=== PATIENT | female | born 1960 | race Caucasian/White ===

== ENCOUNTER 2016-04-20 19:32 | Emergency (ER) | payer OTHER ==
[~2016-04-20] VITALS: Ht 152.4 cm; Wt 63.6 kg
[~2016-04-20 19:32] MED LIST: ALBU17AE27 IH; BACL10TA PO; BECL8.7A5 IH; HYD50 PO; LEVO112T7 PO; METF500T4 PO; OMEP20CA10 PO; PRAZ2 PO; TRAM50TA4 PO
[2016-04-20] MEDS ORDERED: SERT100T12 PO (19:59)
[2016-04-20] MEDS ORDERED: MORP15TA9 PO (19:59)
[2016-04-20] MEDS ORDERED: HYDR-3965 PO (19:59)
[2016-04-20 20:01] LABS: GLUCOSE,POINT OF CARE 106 MG/DL (70-110)
[2016-04-20 20:08] LABS: BASOPHILS % (AUTO) 0.3 % (0.0-2.0); HEMATOCRIT 36.5 % (36-46); HEMOGLOBIN 12.3 g/dL (12.0-16.0); LYMPHOCYTES # (AUTO) 4.8 K/uL (1.0-4.8); LYMPHOCYTES % (AUTO) 41.7 % (22.0-44.0); MEAN CORPUSCULAR HEMOGLOBIN 30.4 pg (26.0-34.0); MEAN CORPUSCULAR HGB CONC 33.8 G/dL (31.0-37.0); MEAN CORPUSCULAR VOLUME 90 fL (80-100); MONOCYTES # (AUTO) 0.8 K/uL (0.1-1.0); MONOCYTES % (AUTO) 7.4 % (2.0-9.0); NEUTROPHILS # (AUTO) 5.5 K/uL (1.8-7.7); NEUTROPHILS % (AUTO) 47.6 % (40.0-70.0); PLATELET COUNT (AUTO) 246 K/uL (150-450); RED BLOOD CELL COUNT(AUTO) 4.06 MIL/uL (4.00-5.20); RED CELL DISTRIBUTION WIDTH 13.8 % (11.5-14.5); WHITE BLOOD COUNT (AUTO) 11.5 K/uL (4.5-11.0)
[2016-04-20 20:26] LABS: ANION GAP 11 mmol/L (8-16); CALCIUM, TOTAL 8.9 mg/dL (8.8-10.5); CARBON DIOXIDE 25 mmol/L (22-29); CHLORIDE 103 mmol/L (98-107); CREATININE 0.82 mg/dL (0.60-1.30); GLOMERULAR FILTR. RATE CALC > 60 mL/min (>60); POTASSIUM 3.1 mmol/L (3.5-5.1); SODIUM SERUM 139 mmol/L (136-145); UREA NITROGEN, BLOOD 16 mg/dL (7-18)
[2016-04-20 20:31] LABS: ALANINE AMINOTRANSFERASE 29 U/L (12-78); ALBUMIN 3.7 g/dL (3.4-5.0); ASPARTATE AMINOTRANSFERASE 31 U/L (15-37); BILIRUBIN,TOTAL 0.2 mg/dL (0.1-1.0); TOTAL PROTEIN, SERUM 6.9 g/dL (6.4-8.2)
[2016-04-20] MEDS ORDERED: SODIUM CHLORIDE 0.9% 1,000 ML IV ONE (22:45)
[2016-04-20] MEDS ORDERED: ONDANSETRON HCL 4 MG/2 ML VIAL IVP ONE (22:45)
[2016-04-20] MEDS ORDERED: DIPHENOXYLATE/ATROP 2.5-0.025 MG TABLET PO ONE (22:45)
[2016-04-21 01:30] VITALS: BP 128/81
== END 2016-04-21 01:29 | disposition home or self-care (01) ==
LOC: EMS 19:36
DX: K52.9 Noninfective gastroenteritis and colitis, unspecified (principal); K21.9 Gastro-esophageal reflux disease without esophagitis; J45.909 Unspecified asthma, uncomplicated; E03.9 Hypothyroidism, unspecified
CPT/HCPCS: 80053; 82962; 83690; 85025; 96361; 96374; 99284; J2405; J7030

== ENCOUNTER 2018-10-05 11:55 | Emergency (ER) | payer OTHER ==
[~2018-10-05] VITALS: Ht 152.4 cm; Wt 79.5 kg
[~2018-10-05 11:55] MED LIST changes: +HYDR-4061 PO; +METF-960 PO; -METF500T4 PO; +MORP15TA9 PO; +OMEP-50 PO; -OMEP20CA10 PO; +SERT100T12 PO
[2018-10-05 12:14] LABS: GLUCOSE,POINT OF CARE 170 MG/DL (70-110)
[2018-10-05 15:18] VITALS: BP 112/70
[2018-10-05] MEDS ORDERED: ACETAMINOPHEN 325 MG TABLET PO ONE (15:30)
[2018-10-05] MEDS ORDERED: IBUPROFEN 600 MG TABLET PO ONE (15:30)
== END 2018-10-05 16:18 | disposition home or self-care (01) ==
LOC: EMS 11:55
DX: S93.401A Sprain of unspecified ligament of right ankle, initial encounter (principal); M25.561 Pain in right knee; J45.909 Unspecified asthma, uncomplicated; K21.9 Gastro-esophageal reflux disease without esophagitis; E03.9 Hypothyroidism, unspecified; Z90.49 Acquired absence of other specified parts of digestive tract; Z90.710 Acquired absence of both cervix and uterus; Z79.84 Long term (current) use of oral hypoglycemic drugs; W19.XXXA Unspecified fall, initial encounter; Y93.01 Activity, walking, marching and hiking; Y92.89 Other specified places as the place of occurrence of the external cause; Y99.8 Other external cause status
CPT/HCPCS: 29505